=== PATIENT | male | born 1995 | race Caucasian/White ===

== ENCOUNTER 2020-05-10 00:48 | Emergency (ER) | payer OTHER ==
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
[2020-05-10 02:11] LABS: CHLORIDE,CL 105 mmol/L (98-107); SODIUM,NA 140 mmol/L (136-145)
[2020-05-10 02:12] LABS: ANION GAP 12.8 mmol/L (10-20)
[2020-05-10] MEDS ORDERED: Iopamidol 612 MG/ML 100 ML Bottle IVPUSH ONE (02:33)
[2020-05-10 03:58] LABS: BUPRENORPHINE,URINE NEGATIVE (NEGATIVE); MARIJUANA,URINE NEGATIVE (NEGATIVE); METHYLENEDIOXYMETHAMP,UR NEGATIVE (NEGATIVE); PHENCYCLIDINE,URINE NEGATIVE (NEGATIVE)
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
== END 2020-05-10 04:35 | disposition short-term general hospital (02) ==
LOC: VM.ED 00:48
DX: S42.115A Nondisplaced fracture of body of scapula, left shoulder, initial encounter for closed fracture (principal); S27.321A Contusion of lung, unilateral, initial encounter; S00.83XA Contusion of other part of head, initial encounter; H61.23 Impacted cerumen, bilateral; R09.02 Hypoxemia; R04.2 Hemoptysis; V89.2XXA Person injured in unspecified motor-vehicle accident, traffic, initial encounter; Y92.411 Interstate highway as the place of occurrence of the external cause
CPT/HCPCS: 36415; 70450; 71046; 71260; 72125; 73030; 74177; 80053; 80305; 80307; 81002; 85025; 99285; Q9967; 99284